=== PATIENT | male | born 1935 | race Caucasian/White ===

== ENCOUNTER 2019-06-11 09:53 | Outpatient (CLI) | payer OTHER, SELFPAY ==
--- NOTE | 2019-06-11 10:15 | USCV_ITS ---
Justyn Johnson Age: 83 Gender: M : 1935 Exam Date: 06/11/2019 09:58 Ordering Phys: Reilly Asif DO Technologist: [place] [facility] [place]: Diminished pedal pulses, non-healing leg wound RIGHT LEFT Brachial 176.00 mmHg Brachial 181.00 mmHg Pressure (mmHg) Waveform Pressure (mmHg) Waveform Above Knee 161.00 Below Knee 93.00 COMMUNITY DEVELOPMENT PLANNER 118.00 182.00 DPA 100.00 1.01 Ankle/Brachial Index 0.65 123.00 Pre-Exercise Toe Pressure 14.00 0.68 Pre-Exercise Toe/Brachial Index 0.08 FINDINGS See measurements listed above. Normal resting GARRICK of the right side with a minimally diminished resting TBI Moderately diminished resting GARRICK on the left side with a severely diminished resting TBI Near normal PVR waveforms on the right side Markedly diminished amplitude of the PVR waveforms at the below- knee level on the left side CONCLUSIONS Features suggestive of severe peripheral artery disease possibly involving the infrapopliteal vessels on the left side Features of mild peripheral artery disease on the right side Dr Reynaldo Green MD [facility] (Electronically Signed) Final Date: 11 June 2019 19:57 S
== END 2019-06-11 09:54 | disposition home or self-care (01) ==
LOC: US 09:57
PROVIDERS: Family Provider Emergency Medicine Emergency Medical Services; PCP Emergency Medicine Emergency Medical Services; Visit Provider Emergency Medicine Emergency Medical Services
DX: L97.821 Non-pressure chronic ulcer of other part of left lower leg limited to breakdown of skin (principal)
CPT/HCPCS: 93923

== ENCOUNTER 2019-06-16 10:32 | Emergency (ER) | payer OTHER, SELFPAY ==
[2019-06-16 10:36] VITALS: BP 216/112; PULSE 50; RESP 16; TEMP 36.7; O2SAT 98; BMI 22.5
[2019-06-16 10:47] VITALS: O2SAT 97
--- NOTE | 2019-06-16 10:55 | ED_ITS ---
Entered by Fanta Vital, acting as scribe for Edil Lindsey DO Jun 16, 2019 10:32 HPI - Extremity Problem General: Chief complaint: Extremity Injury, Lower Stated complaint: LEFT LEG BLOOD CLOT Time Seen by Provider: 06/16/19 10:53 Source: patient and RN notes reviewed Mode of arrival: ambulatory Limitations: no limitations History of Present Illness: HPI Narrative: 83 yo male presents to ED with complaints of numbness and redness to his LLE. The patient said he has been on antibiotics for a month. The patient has no pulse from his L mid-calf to his toes. The patient states the pain in his L leg was so severe last night that he was unable to walk. The patient states he L foot has been numb for quite a while MD Complaint: extremity pain (LLE) and cold extremity (LLE) Onset (ago): month(s) (1) Pain Consistency: constant Location: left and lower extremity Severity scale (1-10): 10 Quality: stabbing, aching and constant Radiation: other (mid-calf completely through to L toes) Relieving factors: nothing Exacerbating factors: range of motion, weight bearing, walking and exertion Associated symptoms: Reports no associated symptoms Review of Systems General: Reports: 10 or more systems reviewed and unremarkable except in HPI and below PFSH ED PFSH: Social History Smoking and tobacco status: never smoked Physical Exam Const: COMMON NORMALS: no apparent distress, average body habitus, oriented x3, no limitations, healthy appearing, alert and well nourished HENMT: COMMON NORMALS: normocephalic, head/scalp atraumatic, hearing grossly normal bilaterally, external ears normal, EAC's normal, TM's normal bilaterally, external nose normal, nasal mucous membranes and turbinates normal, moist oral mucous membranes, oropharynx normal, dentition normal and gingiva normal HEAD & SCALP: normocephalic and atraumatic NOSE: external nose normal and nasal mucous membranes and turbinates normal EXTERNAL EAR: Yes external ears normal EXTERNAL AUDITORY CANAL: EAC's normal TYMPANIC MEMBRANE: TM's normal bilaterally Eye: COMMON NORMALS: PERRL, EOMs intact bilaterally, conjunctivae normal, no scleral icterus, no papilledema, normal visual streeter by confrontation and fundi normal bilaterally CONJUNCTIVA: Yes conjunctivae normal PUPIL: Yes PERRL DIRECT OPHTHALMOSCOPY: Yes no papilledema and Yes fundi normal bilaterally Neck/C-Spine: COMMON NORMALS: full ROM, no lymphadenopathy, supple, no meningeal signs, no JVD, thyroid normal and no carotid bruits THYROID: thyroid normal Chest: COMMONS NORMALS: inspection of chest normal and palpation of chest normal Resp: COMMON NORMALS: normal respiratory effort, no retractions, no use of accessory muscles, clear to auscultation bilaterally and percussion normal AUSCULTATION: clear to auscultation bilaterally PERCUSSION: percussion normal Cardio: COMMON NORMALS: no JVD, regular rate, regular rhythm, S1 normal heart sound, S2 normal heart sound, no gallops, no clicks, no murmurs and no rub RATE: regular rate RHYTHM: regular rhythm HEART SOUNDS: S1 normal and S2 normal GI: COMMON NORMALS: normal to inspection, nondistended, normoactive bowel sounds, soft to palpation, non-tender, no hepatosplenomegaly, no masses and no bruits PALPATION: Yes soft and Yes no hepatosplenomegaly : COMMON NORMALS: Yes no CVA tenderness BLADDER/KIDNEY EXAM: Yes no CVA tenderness Back/Pelvis: COMMON NORMALS: no CVA tenderness, thoracic and lumbar spine normal to inspection, no thoracic nor lumbar tenderness, thoraco-lumbar ROM normal and straight leg raise negative bilaterally Extremity: COMMON NORMALS: full ROM, no joint enlargement, no clubbing, cyanosis or edema and no pedal edema GENERAL: Yes calf tenderness (LLE) LEFT LOWER EXTREMITY: Yes lower leg (painful, cold to touch), Yes ankle joint (painful, cold to touch) and Yes foot & digits (painful, cold to touch) Neuro: COMMON NORMALS: oriented x3 SENSORIUM/ORIENTATION: Yes alert MENINGEAL SIGNS: Yes no meningeal signs Skin: COMMON NORMALS: no rashes or lesions noted, no wounds, skin turgor normal, no jaundice, no petechiae and no mottling GENERAL SKIN EXAM: no rashes or lesions noted and turgor normal Course Vital Signs: Vital signs: Vital Signs Temperature 98.1 F 06/16/19 10:36 Pulse Rate 83 06/16/19 14:57 Respiratory Rate 17 06/16/19 14:57 Blood Pressure 144/97 06/16/19 14:57 Pulse Oximetry 96 06/16/19 14:57 MDM - Extremity (Nontraumatic) Lab Data: Labs: Lab Results 06/16/19 06/16/19 06/16/19 Range/Units 11:20 11:20 11:20 WBC 7.3 (4.0-10.0) 10^3/ uL RBC 4.99 (4.1-5.3) 10^6/u L Hgb 15.9 (11.7-16.6) g/dL Hct 45.6 (42.0-52.0) % MCV 91.4 (80-94) fL MCH 31.9 (28.0-34.0) pg MCHC 34.9 (30.0-36.0) g/dL RDW 12.4 (12.1-15.1) % Plt Count 182 (130-400) 10^3/c mm MPV 10.0 (7.4-10.4) fL Neut % (Auto) 45.3 % Lymph % (Auto) 38.2 % [place] % (Auto) 12.1 % Eos % (Auto) 3.0 % Baso % (Auto) 1.1 % Neut # (Auto) 3.3 (1.8-7.7) 10^3/u L Lymph # (Auto) 2.8 (0.8-4.8) 10^3/u L [place] # (Auto) 0.9 (0.2-0.9) 10^3/u L Eos # (Auto) 0.2 (0.0-0.8) 10^3/u L Baso # (Auto) 0.1 (0.0-0.1) 10^3/u L Nucleated RBC % (a uto) 0 % Nucleated RBCs # 0.0 /100WBC PT 13.90 H (10.5-13.3) SECO NDS INR 1.04 (0.8-1.2) APTT 33.7 (23.9-36.7) SECO NDS Sodium 139 (136-145) mmol/L Potassium 4.3 (3.5-5.1) mmol/L Chloride 103 (98-107) mmol/L Carbon Dioxide 23 (22-29) mmol/L Anion Gap 17.3 (5-19) BUN 12 (8-23) mg/dL Creatinine 0.8 (0.7-1.2) mg/dL Glucose 107 (65-115) mg/dL Lactate (0.5-2.2) mmol/L Calcium 9.6 (8.5-10.5) mg/dL Total Bilirubin 1.0 (0.15-1.2) mg/dL AST 19 (0-40) U/L ALT 14 (0-41) U/L Alkaline Phosphata se 74 (40-130) IU/L Total Protein 7.9 (6.6-8.7) g/dL Albumin 3.8 (3.5-5.2) g/dL Globulin 4.1 (1.3-4.6) g/dL 06/16/19 Range/Units 11:38 WBC (4.0-10.0) 10^3/ uL RBC (4.1-5.3) 10^6/u L Hgb (11.7-16.6) g/dL Hct (42.0-52.0) % MCV (80-94) fL MCH (28.0-34.0) pg MCHC (30.0-36.0) g/dL RDW (12.1-15.1) % Plt Count (130-400) 10^3/c mm MPV (7.4-10.4) fL Neut % (Auto) % Lymph % (Auto) % [place] % (Auto) % Eos % (Auto) % Baso % (Auto) % Neut # (Auto) (1.8-7.7) 10^3/u L Lymph # (Auto) (0.8-4.8) 10^3/u L [place] # (Auto) (0.2-0.9) 10^3/u L Eos # (Auto) (0.0-0.8) 10^3/u L Baso # (Auto) (0.0-0.1) 10^3/u L Nucleated RBC % (a uto) % Nucleated RBCs # /100WBC PT (10.5-13.3) SECO NDS INR (0.8-1.2) APTT (23.9-36.7) SECO NDS Sodium (136-145) mmol/L Potassium (3.5-5.1) mmol/L Chloride (98-107) mmol/L Carbon Dioxide (22-29) mmol/L Anion Gap (5-19) BUN (8-23) mg/dL Creatinine (0.7-1.2) mg/dL Glucose (65-115) mg/dL Lactate 1.5 (0.5-2.2) mmol/L Calcium (8.5-10.5) mg/dL Total Bilirubin (0.15-1.2) mg/dL AST (0-40) U/L ALT (0-41) U/L Alkaline Phosphata se (40-130) IU/L Total Protein (6.6-8.7) g/dL Albumin (3.5-5.2) g/dL Globulin (1.3-4.6) g/dL Discharge Plan Discharge Patient Disposition: Transfer to ED Clinical Impression: Arterial occlusion, lower extremity Condition: Stable Prescriptions: No Action No Known Home Medications RF: 0 Discharge Orders: Transfer Out of Facility (Order); Ordered 06/16/19 Ordered By: Edil Lindsey Referrals: Reilly Asif DO [Primary Care Provider] - Coding Level of Care Code ED Field Liability Generalist for Chg Fwd Exam Comprehensive The documentation recorded by the Zahraa antonio Valerie R, accurately reflects the service I personally performed and the decisions made by Rosalia nix Donald P, DO Jun 16, 2019 10:32
[2019-06-16 11:37] LABS: Basophils # 0.1 10^3/uL (0.0-0.1); Basophils % 1.1 %; Eosinophils # 0.2 10^3/uL (0.0-0.8); Hematocrit 45.6 % (42.0-52.0); Hemoglobin 15.9 g/dL (11.7-16.6); Lymphocytes # 2.8 10^3/uL (0.8-4.8); Lymphocytes % 38.2 %; Mean Corpuscular HGB Conc 34.9 g/dL (30.0-36.0); Mean Corpuscular Hemoglobin 31.9 pg (28.0-34.0); Mean Corpuscular Volume 91.4 fL (80-94); Monocytes # 0.9 10^3/uL (0.2-0.9); Monocytes % 12.1 %; Neutrophils # 3.3 10^3/uL (1.8-7.7); Neutrophils % 45.3 %; Nucleated Red Blood Cells % 0 %; Platelet Count 182 10^3/cmm (130-400); Red Blood Count 4.99 10^6/uL (4.1-5.3); Red Cell Distribution Width 12.4 % (12.1-15.1); White Blood Count 7.3 10^3/uL (4.0-10.0)
[2019-06-16 11:42] LABS: INR 1.04 (0.8-1.2)
[2019-06-16 11:44] LABS: Partial Thromboplastin Time 33.7 SECONDS (23.9-36.7)
[2019-06-16 11:49] LABS: Alanine Aminotransferase 14 U/L (0-41); Albumin Level 3.8 g/dL (3.5-5.2); Alkaline Phosphatase 74 IU/L (40-130); Anion Gap 17.3 (5-19); Aspartate Amino Transferase 19 U/L (0-40); Blood Urea Nitrogen 12 mg/dL (8-23); Calcium 9.6 mg/dL (8.5-10.5); Carbon Dioxide 23 mmol/L (22-29); Chloride 103 mmol/L (98-107); Globulin 4.1 g/dL (1.3-4.6); Glucose 107 mg/dL (65-115); Potassium 4.3 mmol/L (3.5-5.1); Sodium 139 mmol/L (136-145); Total Protein 7.9 g/dL (6.6-8.7)
[2019-06-16 11:58] LABS: Lactate (Lactic Acid level) 1.5 mmol/L (0.5-2.2)
[2019-06-16 14:57] VITALS: BP 144/97; PULSE 83; RESP 17; O2SAT 96
== END 2019-06-16 15:36 ==
PROVIDERS: Emergency Provider Family Medicine; Family Provider Emergency Medicine Emergency Medical Services; PCP Emergency Medicine Emergency Medical Services
DX: I70.202 Unspecified atherosclerosis of native arteries of extremities, left leg (principal)
CPT/HCPCS: 36415; 80053; 83605; 85025; 85610; 85730; 99282; 99285

== ENCOUNTER 2020-09-17 08:05 | Emergency (ER) | payer OTHER, SELFPAY ==
[2020-09-17 08:16] VITALS: BP 166/119; PULSE 60; RESP 18; TEMP 36.6; O2SAT 96
--- NOTE | 2020-09-17 08:17 | XRR_ITS ---
PROCEDURE INFORMATION: Exam: XR Right Wrist Exam date and time: 09/17/2020 8:19 AM Age: 84 years old Clinical indication: Pain; Wrist; Right; Additional info: Injury TECHNIQUE: Imaging protocol: XR Right wrist. Views: 3 or more views. COMPARISON: No relevant prior studies available. FINDINGS: Bones/joints: No acute bony injury or malalignment in the visualized right wrist. Degenerative change and chondrocalcinosis. Soft tissues: Mild soft tissue swelling. XR/XR wrist RT w scaphoid [id number] IMPRESSION: No acute bony injury or malalignment in the visualized right wrist.
--- NOTE | 2020-09-17 08:18 | W.ED.GENADLT ---
HPI - General Adult General: Chief complaint: Extremity Injury, Upper Stated complaint: pain in right wrist Time Seen by Provider: 09/17/20 08:14 Source: patient and family Mode of arrival: ambulatory Limitations: no limitations History of Present Illness: HPI narrative: This patient is a 84-year-old male who presents to the emergency department with right wrist pain. And swelling. Patient was working on a water faucet last night and strained his wrist. Patient states has been hurting and difficult to bend his wrist ever since. Patient presents to the emergency department today stating the pain is becoming unbearable. Patient concerning for possible dislocation versus fracture. Will do medical evaluation treat as needed Onset (ago): day(s) Location: right and upper extremity Severity scale (1-10): 6 Pain Consistency: constant Relieving factors: none Exacerbating factors: movement Associated symptoms: Deny chest pain, dyspnea, headache(s), nausea, rash, palpitations or vomiting Review of Systems General: Reports: 10 or more systems reviewed and unremarkable except in HPI and below Const: Denies: fever(s), chills, body aches or fatigue Eyes: Denies: change in vision or blurry vision ENMT: Denies: throat pain, hoarseness or mouth pain Card: Denies: chest pain or palpitations Resp: Denies: dyspnea GI: Denies: nausea or vomiting : Denies: flank pain, dysuria, urinary frequency, urinary urgency or urinary hesitancy Musc: Denies: neck pain, back pain, extremity pain, extremity swelling, joint pain, joint swelling, joint redness, joint warmth or limited range of motion Skin/Breast: Denies: rash Neuro: Denies: headache(s) Psych: Denies: anxiety or depression PFS ED PFSH: Social History Smoking and tobacco status: never smoked Physical Exam Const: COMMON NORMALS: no acute distress, average body habitus, patient oriented x3, no limitations, healthy appearing, alert and well nourished HENMT: COMMON NORMALS: normocephalic, atraumatic, external ears normal, EAC's normal, TM's normal bilaterally, Normal external nose present and Normal nasal mucous membranes and turbinates present HEAD & SCALP: normocephalic and atraumatic NOSE: Normal external nose present and Normal nasal mucous membranes and turbinates present EXTERNAL EAR: Yes external ears normal EXTERNAL AUDITORY CANAL: EAC's normal TYMPANIC MEMBRANE: TM's normal bilaterally Neck/C-Spine: COMMON NORMALS: full ROM, no lymphadenopathy, supple, no meningeal signs, no JVD, Thyroid normal and No carotid bruits THYROID: Thyroid normal Chest: COMMONS NORMALS: normal inspection of the chest, normal palpation of entire chest wall, normal inspection of the breasts and normal palpation of the breasts Breast/axilla inspection: Yes normal inspection of the breasts BREAST/AXILLA PALPATION: Yes normal palpation of the breasts Resp: COMMON NORMALS: normal respiratory effort, No retractions, No use of accessory muscles, clear to auscultation bilaterally and percussion normal AUSCULTATION: clear to auscultation bilaterally PERCUSSION: percussion normal Cardio: COMMON NORMALS: no JVD, regular rate, regular rhythm, S1 normal heart sound present, S2 normal heart sound present, No gallops present (Cardio), No clicks present (Cardio), No murmurs present (Cardio), No rub (Cardio) and Peripheral pulses 2+ throughout RATE: regular rate RHYTHM: regular rhythm HEART SOUNDS: S1 normal heart sound present and S2 normal heart sound present PERIPHERAL PULSES: Peripheral pulses 2+ throughout GI: COMMON NORMALS: Normal to inspection, nondistended, normoactive bowel sounds present, Soft to palpation, non-tender, No hepatosplenomegaly present, no masses and no bruits PALPATION: Yes Soft to palpation and Yes No hepatosplenomegaly present : COMMON NORMALS: Yes no CVA tenderness BLADDER/KIDNEY EXAM: Yes no CVA tenderness Back/Pelvis: COMMON NORMALS: no CVA tenderness, thoracic and lumbar spine normal to inspection, no thoracic nor lumbar tenderness, thoraco-lumbar ROM normal and straight leg raise negative bilaterally Extremity: COMMON NORMALS: capillary refill normal, no joint enlargement, no clubbing, cyanosis or edema, no calf tenderness and no pedal edema RIGHT UPPER EXTREMITY: Yes wrist (Decreased range of motion. And swelling on the ulnar side. Pain with move) Right wrist: Yes palpation (Pain on palpation), Yes ROM (Decreased range of motion) and Yes neurovascular exam (Appears to be intact but difficult to assess. ) EXTREMITY IMAGE (FRONT): 1. Wrist injury with pain and swelling Neuro: COMMON NORMALS: patient oriented x3 SENSORIUM/ORIENTATION: Yes alert MENINGEAL SIGNS: Yes no meningeal signs Course Reevaluation(s): Reevaluation #1: Patient placed in splint. Pain medicine medication given. No bony injury seen. Patient placed in splint and Ortho follow-up. Patient states understanding he will be discharged home Time: 09:34 Vital Signs: Vital signs: Vital Signs Temperature 97.8 F 09/17/20 08:16 Pulse Rate 60 09/17/20 08:16 Respiratory Rate 18 09/17/20 08:24 Blood Pressure 166/119 09/17/20 08:16 Pulse Oximetry 96 09/17/20 08:16 MDM - General Adult MDM Narrative: Medical decision making narrative: This patient is a 84-year-old male who presents to the emergency department with right wrist pain. And swelling. Patient was working on a water faucet last night and strained his wrist. Patient states has been hurting and difficult to bend his wrist ever since. Patient presents to the emergency department today stating the pain is becoming unbearable. Patient concerning for possible dislocation versus fracture however radiological evaluation is negative for any acute findings. Patient be discharged home with rest ice elevation and splint as instructed. Take medications as instructed. Follow-up with primary care physician or orthopedics as needed. Imaging Data^: Xray Ortho: Attestation: I personally reviewed and interpreted this imaging study as follows: My impression: No acute findings Radiologist's impression: FINDINGS: Bones/joints: No acute bony injury or malalignment in the visualized right wrist. Degenerative change and chondrocalcinosis. Soft tissues: Mild soft tissue swelling. XR/XR wrist RT w scaphoid [id number] IMPRESSION: No acute bony injury or malalignment in the visualized right wrist. Discharge Plan Discharge Patient Disposition: Home Clinical Impression: Right wrist sprain Condition: Stable Prescriptions: New diclofenac potassium 50 mg tablet 50 mg PO Q12H PRN (Reason: pain) Qty: 20 RF: 0 No Action ferrous sulfate 325 mg (65 mg iron) tablet 325 mg PO DAILY RF: 0 prednisolone acetate 1 % drops,suspension 1 drp ophthalmic (eye) BID RF: 0 Discharge Orders: Discharge ED (Routine); Ordered 09/17/20 Ordered By: Randy Toledo Referrals: Reilly Asif, DO [Primary Care Provider] - Discharge Diet: Usual diet Discharge Activity: Resume usual activity Patient Instructions: Opioid Safety Activity Restrictions/Additional Instructions: Patient be discharged home with rest ice elevation and splint as instructed. Take medications as instructed. Follow-up with primary care physician or orthopedics as needed. Coding Level of Care Code ED Product Development Technician for Sally Fwd Exam Comprehensive
[2020-09-17 08:24] VITALS: RESP 18
[2020-09-17] MEDS: HYDROcodone-acetaminophen 10-325 mg Tablet 1 TAB PO (09:28)
== END 2020-09-17 09:47 | disposition home or self-care (01) ==
PROVIDERS: Emergency Provider Emergency Medicine; PCP Emergency Medicine Emergency Medical Services
DX: S63.501A Unspecified sprain of right wrist, initial encounter (principal); X58.XXXA Exposure to other specified factors, initial encounter
CPT/HCPCS: 73110; 99283

== ENCOUNTER 2020-12-08 13:59 | Outpatient (CLI) | payer OTHER, SELFPAY ==
--- NOTE | 2020-12-08 15:45 | USCV_ITS ---
Justyn Johnson Age: 85 Gender: M : 1935 Exam Date: 12/08/2020 14:39 Ordering Phys: Nova Yates MD ([email or web address]) Technologist: KARLY Exam Location: [facility] [place] Indication: DYSPNEA BP: 136 / 95 HR: 52 Rhythm: Sinus Technical Quality: Suboptimal MEASUREMENTS (Male / Female) Normal Values 2D ECHO LV Diastolic Diameter PLAX 1.4 cm 4.2 - 5.9 / 3.9 - 5.3 cm LV Systolic Diameter PLAX 0.9 cm IVS Diastolic Thickness 1.6 cm 0.6 - 1.0 / 0.6 - 0.9 cm IVS Systolic Thickness 1.6 cm LVPW Diastolic Thickness 1.3 cm 0.6 - 1.0 / 0.6 - 0.9 cm LVPW Systolic Thickness 1.7 cm LVOT Diameter 1.9 cm LV Ejection Fraction 2D Teich 64.6 % LV Ejection Fraction MOD 2C 63.7 % LV Ejection Fraction 2C AL 63.2 % LA Diameter 4.3 cm LA Width 2.7 cm LA Height 2.9 cm RA Width 2.3 cm RA Height 2.5 cm Aorta at Sinotubular Diameter 2.4 cm DOPPLER AV Peak Velocity 124.0 cm/s LVOT Peak Velocity 124.0 cm/s AV Area Cont Eq vti 2.3 cm squared AV Area Cont Eq pk 2.8 cm squared MV Peak Velocity 498.0 cm/s MV Area PHT 2.0 cm squared Mitral E to A Ratio 0.7 MV E' Velocity 67.0 cm/s Mitral E to LV E' Septal Ratio 9.0 TR Peak Velocity 135.4 cm/s TR Peak Gradient 7.3 mmHg TR Mean Velocity 87.8 cm/s TR Mean Gradient 3.9 mmHg TR Velocity Time Integral 31.1 cm Right Atrial Pressure 3.0 mmHg Pulmonary Artery Systolic Pressu 10.3 mmHg PV Peak Velocity 72.0 cm/s RV Acceleration Time 0.2 s RV Ejection Time 0.4 s RV AcT/ET 0.4 FINDINGS Left Ventricle Normal left ventricular cavity size. Normal left ventricular systolic function. Left ventricular ejection fraction is estimated at 65-70 %. No regional wall motion abnormalities. Grade I diastolic dysfunction (abnormal relaxation filling pattern), normal to mildly elevated filling pressures. Right Ventricle Normal right ventricular size and systolic function. Right Atrium Right atrium not well visualized. Left Atrium Mildly increased left atrial size. Mitral Valve Moderately thickened mitral valve. No mitral valve stenosis. Mild mitral valve regurgitation. Aortic Valve Aortic valve not well visualized. No aortic valve stenosis. Mild to moderate aortic valve regurgitation. Tricuspid Valve Structurally normal tricuspid valve. Pulmonic Valve Pulmonic valve not well visualized. Pericardium No pericardial effusion. Aorta Normal-sized aortic root. Inferior vena cava not well visualized. CONCLUSIONS 1. This is a technically difficult study with poor short axis images. 2. Normal left ventricular cavity size and systolic function. Left ventricular ejection fraction is estimated at 65-70 %. No regional wall motion abnormalities. Grade I diastolic dysfunction (abnormal relaxation filling pattern), normal to mildly elevated filling pressures. 3. Normal right ventricular size and systolic function. 4. Mild to moderate aortic valve regurgitation. 5. Mild mitral valve regurgitation. 6. No prior similar studies to compare. Nova Yates MD (Electronically Signed) Final Date: 12 December 2020 12:21 S
== END 2020-12-08 14:00 | disposition home or self-care (01) ==
PROVIDERS: PCP Emergency Medicine Emergency Medical Services; Visit Provider Internal Medicine Cardiovascular Disease
DX: R06.00 Dyspnea, unspecified (principal); I08.0 Rheumatic disorders of both mitral and aortic valves
CPT/HCPCS: 93306

== ENCOUNTER → 2023-06-19 09:53 | Outpatient (BNVA) | payer OTHER, SELFPAY | PROVIDERS: PCP Emergency Medicine Emergency Medical Services; Visit Provider Nurse Practitioner Family | DX: C43.39 Malignant melanoma of other parts of face (principal); L57.0 Actinic keratosis; L57.8 Other skin changes due to chronic exposure to nonionizing radiation; L81.4 Other melanin hyperpigmentation | CPT/HCPCS: 11102; 17000; 99213 ==

== ENCOUNTER → 2023-07-18 08:49 | Outpatient (BNVA) | payer OTHER, SELFPAY | PROVIDERS: PCP Emergency Medicine Emergency Medical Services; Visit Provider Dermatology | DX: D03.39 Melanoma in situ of other parts of face (principal) | CPT/HCPCS: 11643 ==

== ENCOUNTER → 2023-07-24 11:06 | Outpatient (BNVA) | payer OTHER, SELFPAY | PROVIDERS: PCP Emergency Medicine Emergency Medical Services; Visit Provider Dermatology | DX: Z48.1 Encounter for planned postprocedural wound closure (principal); D03.39 Melanoma in situ of other parts of face | CPT/HCPCS: 99213 ==

== ENCOUNTER → 2023-12-23 09:27 | Outpatient (BNVA) | payer OTHER, SELFPAY | PROVIDERS: PCP Emergency Medicine Emergency Medical Services; Visit Provider Nurse Practitioner Family | DX: L57.8 Other skin changes due to chronic exposure to nonionizing radiation (principal); L81.4 Other melanin hyperpigmentation; L57.0 Actinic keratosis; D48.5 Neoplasm of uncertain behavior of skin; Z86.006 Personal history of melanoma in-situ | CPT/HCPCS: 11102; 17004; 99213 ==

== ENCOUNTER → 2024-01-06 08:56 | Outpatient (BNVA) | payer OTHER, SELFPAY | PROVIDERS: PCP Emergency Medicine Emergency Medical Services; Visit Provider Dermatology | DX: C44.91 Basal cell carcinoma of skin, unspecified (principal) | CPT/HCPCS: 99214 ==

== ENCOUNTER 2024-01-30 09:40 | Outpatient (CLI) | payer OTHER, SELFPAY ==
--- NOTE | 2024-01-30 09:43 | USCV_ITS ---
Justyn Johnson Age: 88 Gender: M : 1935 Exam Date: 01/30/2024 09:52 Ordering Phys: Sridevi Rasmussen Technologist: Jay Overton [place]am Location: [facility] [place] Indication: Leg pain. RIGHT LEFT Brachial 151.00 mmHg Brachial 149.00 mmHg Pressure (mmHg) Waveform Pressure (mmHg) Waveform 187.00 FILLING MACHINE TENDER 115.00 167.00 DPA 161.00 1.24 Ankle/Brachial Index 1.07 130.00 Pre-Exercise Toe Pressure 108.00 0.86 Pre-Exercise Toe/Brachial Index 0.72 FINDINGS Resting GARRICK is 1.24 on the right side and 1.07 on the left side Resting TBI of 0.86 on the right and 0.72 on the left CONCLUSIONS Normal resting ABIs and TBIs bilaterally No significant arterial obstruction, based on the above findings Dr Reynaldo Green MD [facility] (Electronically Signed) Final Date: 31 January 2024 13:51 S
== END 2024-01-30 09:41 | disposition home or self-care (01) ==
LOC: RAD 09:40
PROVIDERS: PCP Nurse Practitioner; Visit Provider Nurse Practitioner
DX: Z95.828 Presence of other vascular implants and grafts (principal)
CPT/HCPCS: 93922

== ENCOUNTER → 2024-02-20 13:57 | Outpatient (BNVA) | payer OTHER, SELFPAY | PROVIDERS: PCP Nurse Practitioner; Visit Provider Dermatology | DX: C44.91 Basal cell carcinoma of skin, unspecified (principal); L57.8 Other skin changes due to chronic exposure to nonionizing radiation; L81.4 Other melanin hyperpigmentation; L57.0 Actinic keratosis; Z86.006 Personal history of melanoma in-situ | CPT/HCPCS: 17000; 99214 ==

== ENCOUNTER → 2024-04-15 09:00 | Outpatient (BNVA) | payer OTHER, SELFPAY | PROVIDERS: PCP Nurse Practitioner; Visit Provider Nurse Practitioner Family | DX: L57.8 Other skin changes due to chronic exposure to nonionizing radiation (principal); L81.4 Other melanin hyperpigmentation; Z85.828 Personal history of other malignant neoplasm of skin; Z08 Encounter for follow-up examination after completed treatment for malignant neoplasm; Z86.006 Personal history of melanoma in-situ | CPT/HCPCS: 17000; 99213 ==

== ENCOUNTER 2024-04-20 11:36 | Emergency (ER) | payer OTHER, SELFPAY ==
[2024-04-20 11:38] VITALS: BP 138/91; PULSE 75; RESP 16; TEMP 36.9; O2SAT 95
--- NOTE | 2024-04-20 11:43 | XRR_ITS ---
PROCEDURE INFORMATION: Exam: XR Chest Exam date and time: 04/20/2024 12:02 PM Age: 88 years old Clinical indication: Other: Weakness TECHNIQUE: Imaging protocol: Radiologic exam of the chest. Views: 1 view. COMPARISON: No relevant prior studies available. FINDINGS: Lungs: There are infiltrates present in the left lung located in the left suprahilar region and in the lateral aspect of the left midlung zone and left lung base.There is a nodule in the right lung base measuring 9 mm. Recommend attempts to obtain old studies for comparison to determine stability. If no old films can be obtained, then further evaluation with chest CT is recommended Pleural spaces: Unremarkable. No pleural effusion. No pneumothorax. Heart/Mediastinum: The heart size is within normal limits. Bones/joints: Unremarkable. XR/XR chest 1V portable [id number] IMPRESSION: 1. Left lung infiltrates as described. 2. Right basilar pulmonary nodule. Recommend attempts to obtain old studies for comparison to determine stability. If no old studies can be obtained, then further evaluation with chest CT is recommended
--- NOTE | 2024-04-20 11:43 | CT_ITS ---
WS: [id number] CT HEAD NONCONTRAST HISTORY: fall, head injury TECHNIQUE: Contiguous axial imaging performed through the brain. Bone and soft tissue windows. Sagitt al and coronal reformats reviewed. All CT scans at [facility] use at least one of these dose optimization techniques: automated exposure control; mA and/or kV adjustment per patient size (includ es targeted exams where dose is matched to clinical indication); or iterative reconstruction. DLP: 1250.92 mGy.cm COMPARISON: None available. No acute intracranial hemorrhage, midline shift or mass effect. Severe symmetric atrophy and small vessel ischemic disease. Severe cerebellar atrophy. Ventricles: Mildly prominent ventricles on the basis of atrophy. No inferior displacement of the cerebellar tonsils. Paranasal sinuses: As visualized are clear. Mastoid air cells: Well pneumatized. Calvarium and scalp: Skull is intact with no soft tissue edema or swelling. CT/CT head wo con* [id number] IMPRESSION: 1. No acute intracranial hemorrhage or edema. 2. 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 3. No skull fracture.
--- NOTE | 2024-04-20 11:44 | ECG_ITS ---
[facility]: [facility] Pat Name: Justyn Johnson Department: Room: Gender: Male Route Clerk: : 1935 Requested By: Kristina Corley Order Number: [id number] Isabella MD: Shaheen Jaramillo M.D. Measurements Intervals [place] Rate: 71 P: 75 AR: 202 QRS: -42 QRSD: 92 T: 40 QT: 363 QTc: 396 Interpretive Statements SINUS RHYTHM WITH FREQUENT VENTRICULAR PREMATURE COMPLEXES LEFT AXIS DEVIATION [QRS AXIS < -30] NONSPECIFIC T-WAVE ABNORMALITY No previous ECG available for comparison Electronically Signed On 04-20-2024 20:03:10 SUPERVISOR PARTIAL DENTURE DEPARTMENT by Shaheen Jaramillo M.D. [email or web address]
--- NOTE | 2024-04-20 11:57 | PC.PHAR ---
[facility], [facility] fax at 12
--- NOTE | 2024-04-20 11:58 | W.ED.WEAKNES ---
HPI - Weakness General: Chief complaint: Weakness Stated complaint: weakness, fall Time Seen by Provider: 04/20/24 11:37 History of Present Illness: 88-year-old man who says he takes no medications and is normally healthy and walks 1 mile each day on the weekends who presents emergency room with weakness, fall and a cough. EMS reports that he was febrile but his temp is 98.4 here without treatment. He says he is just gotten generally weak. He says his arms and his legs bilaterally just are not working. He fell and hit his head on the toilet. No loss of consciousness. He has no altered mental status. No focal motor deficits. No chest pain. No abdominal pain. No nausea or vomiting. He says his only complaints really are cough and generalized weakness. He has been sick for about 2 to 3 days now. Review of Systems Narrative: Constitutional symptoms: Negative except as documented in HPI. Skin symptoms: Negative except as documented in HPI. Eye symptoms: Negative except as documented in HPI. ENMT symptoms: Negative except as documented in HPI. Respiratory symptoms: Negative except as documented in HPI. Cardiovascular symptoms: Negative except as documented in HPI. Gastrointestinal symptoms: Negative except as documented in HPI. Genitourinary symptoms: Negative except as documented in HPI. Musculoskeletal symptoms: Negative except as documented in HPI. Neurologic symptoms: Negative except as documented in HPI. Psychiatric symptoms: Negative except as documented in HPI. Endocrine symptoms: Negative except as documented in HPI. [facility] ED PFSH: Medical History Dysfunction of thyroid Enthesopathy of unspecified site Peripheral vascular disease Post-traumatic osteoarthritis Surgical History Hx of peripheral artery bypass Right femoro-popliteal bypass Family History Grandmother Diabetes Denies family history of CAD (coronary artery disease) Stroke Social History Smoking and tobacco/nicotine status: never used tobacco/nicotine Alcohol intake: never Substance/Drug Use: never Physical Exam Narrative: EXAM NARRATIVE: General: Alert, no acute distress. Skin: Warm, dry. Head: Normocephalic, some mild abrasions on the forehead.. Neck: Supple, trachea midline. Eye: Extraocular movements are intact. Ears, nose, mouth and throat: mucosa moist. Cardiovascular: Regular, Normal peripheral perfusion. Respiratory: Lungs are clear to auscultation, respirations are non-labored, breath sounds are equal, Symmetrical chest wall expansion. Gastrointestinal: Soft, Nontender, Non distended Musculoskeletal: Normal ROM, no deformity. Neurological: Alert and oriented, No focal neurological deficit observed. Psychiatric: Cooperative, appropriate mood & affect. Course Vital Signs: Vital signs: Vital Signs Temperature 98.4 F 04/20/24 11:38 Pulse Rate 92 04/20/24 12:46 Respiratory Rate 16 04/20/24 11:38 Blood Pressure 135/98 04/20/24 12:46 Pulse Oximetry 96 04/20/24 12:46 Oxygen Delivery Me thod Room Air 04/20/24 11:38 MDM - Weakness Medical Decision Making Medical decision making: Differential diagnosis for patient presenting with generalized weakness including but not limited to and based on the above HPI, review of systems and physical exam: Sepsis. Dehydration. Renal failure. Electrolyte abnormalities. Anemia. Congestive heart failure. Hypotension. Coronary syndrome. Hepatitis. Cirrhosis. Infections such as pneumonia, urinary tract infection, [place] illness, Cellulitis, Viral infections including influenza and Covid-19. Workup: labwork and lab/exam driven imaging ordered to evaluate, rule in and rule out above pathologies. EKG: Time 1147. Rate 71. Normal sinus rhythm, No ST-T changes, no ectopy, normal UT & QRS intervals, This was reviewed and interpreted by myself the ER physician at 11:[address] head: No acute intracranial process. no intracranial hemorrhage, no evidence of infarct. no evidence of acute fracture.This was reviewed and interpreted by myself the ER physician. Chest x-ray: Scattered left-sided infiltrate which is likely COVID pneumonitis, but placing on doxycycline as this could be a secondary pneumonia. This was reviewed and interpreted by myself the emergency room physician. I also reviewed the radiology report. There was also an incidental pulmonary nodule Lab Review: Laboratory results were reviewed and interpreted by myself the emergency room physician. No leukocytosis. No anemia. No renal failure. Patient is COVID-positive. I reviewed the patient's medical record. Reexamination: Patient remained stable. No increased work of breathing. No altered mental status. No focal motor deficits. Assessment and plan: COVID-19 Weakness Fall Head injury Pulmonary nodule - Discharged home - Discussed findings and plan with patient. Answered any questions. - All laboratory values were reviewed and interpreted personally by myself, the ER physician - All imaging was reviewed and interpreted personally by myself, the ER physician. - Evaluation and treatment of this problem were appropriate in the emergency setting Lab Data 04/20/24 11:58 04/20/24 11:58 Radiology Impressions Chest X-Ray 04/20/24 11:43 IMPRESSION: 1. Left lung infiltrates as described. 2. Right basilar pulmonary nodule. Recommend attempts to obtain old studies for comparison to determine stability. If no old studies can be obtained, then further evaluation with chest CT is recommended Head CT 04/20/24 11:43 IMPRESSION: 1. No acute intracranial hemorrhage or edema. 2. 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 3. No skull fracture. Laboratory Results WBC 8.03 10^3/uL (3.29-11.43) 04/20/24 11:58 RBC 4.65 10^6/uL (3.85-5.65) 04/20/24 11:58 Hgb 14.90 g/dL (11.27-16.99) 04/20/24 11:58 Hct 43.3 % (37-53) 04/20/24 11:58 MCV 93.1 fl (82-101) 04/20/24 11:58 MCH 32.0 pg (27-33) 04/20/24 11:58 MCHC 34.4 g/dL (30-55) 04/20/24 11:58 RDW 13.2 % (12.1-15.1) 04/20/24 11:58 Plt Count 147 10^3/cmm (157-399) L 04/20/24 11:58 MPV 10.5 fL (7.4-10.4) H 04/20/24 11:58 Neut % (Auto) 78.6 % 04/20/24 11:58 Lymph % (Auto) 8.7 % 04/20/24 11:58 [place] % (Auto) 11.6 % 04/20/24 11:58 Eos % (Auto) 0.2 % 04/20/24 11:58 Baso % (Auto) 0.5 % 04/20/24 11:58 Neut # (Auto) 6.31 10^3/uL (1.8-7.7) 04/20/24 11:58 Lymph # (Auto) 0.7 10^3/uL (0.8-4.8) L 04/20/24 11:58 [place] # (Auto) 0.9 10^3/uL (0.2-0.9) 04/20/24 11:58 Eos # (Auto) 0.0 10^3/uL (0.0-0.8) 04/20/24 11:58 Baso # (Auto) 0.0 10^3/uL (0.0-0.1) 04/20/24 11:58 Nucleated RBC % (auto) 0 % 04/20/24 11:58 Nucleated RBCs # 0.0 /100WBC 04/20/24 11:58 Sodium 132 mmol/L (136-145) L 04/20/24 11:58 Potassium 4.1 mmol/L (3.5-5.1) 04/20/24 11:58 Chloride 98 mmol/L (98-107) 04/20/24 11:58 Carbon Dioxide 22 mmol/L (22-29) 04/20/24 11:58 Anion Gap 16.1 (5-19) 04/20/24 11:58 BUN 13 mg/dL (8-23) 04/20/24 11:58 Creatinine 0.9 mg/dL (0.7-1.2) 04/20/24 11:58 GFR Calculation Not Reportable 04/20/24 11:58 Glucose 114 mg/dL (65-115) 04/20/24 11:58 Calculated Osmolality 275 mOsm/kg (285-295) L 04/20/24 11:58 Lactic Acid 1.6 mmol/L (0.5-2.2) 04/20/24 11:58 Calcium 8.8 mg/dL (8.5-10.5) 04/20/24 11:58 Total Bilirubin 0.8 mg/dL (0.15-1.2) 04/20/24 11:58 AST 13 U/L (0-40) 04/20/24 11:58 ALT 7 U/L (0-41) 04/20/24 11:58 Alkaline Phosphatase 78 U/L (40-130) 04/20/24 11:58 Troponin T Baseline 14 ng/L (0-15) 04/20/24 11:58 C-Reactive Protein 16.9 mg/L (0.0-4.9) H 04/20/24 11:58 NT-Pro-B Natriuret Pep 374 pg/mL (0-450) 04/20/24 11:58 Total Protein 7.5 g/dL (6.6-8.7) 04/20/24 11:58 Albumin 3.6 g/dL (3.5-5.2) 04/20/24 11:58 Globulin 3.9 g/dL (1.3-4.6) 04/20/24 11:58 Urine Color Yellow (Yellow) 04/20/24 12:25 Urine Appearance Clear (CLEAR) 04/20/24 12:25 Urine pH 7.0 (5-7) 04/20/24 12:25 Ur Specific [place] 1.021 (1.005-1.030) 04/20/24 12:25 Urine Protein Negative (Negative) 04/20/24 12:25 Urine Glucose (UA) Negative (Normal) 04/20/24 12:25 Urine Ketones Trace (Negative) 04/20/24 12:25 Urine Blood Negative (Negative) 04/20/24 12:25 Urine Nitrate Negative (Negative) 04/20/24 12:25 Urine Bilirubin Negative (Negative) 04/20/24 12:25 Urine Urobilinogen 1.0 mg/dL (Negative) 04/20/24 12:25 Ur Leukocyte Esterase Negative (Negative) 04/20/24 12:25 Urine RBC 0-2 /hpf (0-2) 04/20/24 12:25 Urine WBC 0-5 /hpf (0-5) 04/20/24 12:25 Ur Squamous Epith Cells 0-5 /hpf (0-5) 04/20/24 12:25 Amorphous Sediment Not Reportable 04/20/24 12:25 Urine Bacteria None seen /hpf (NONE) 04/20/24 12:25 Hyaline Casts 0-4 /lpf H 04/20/24 12:25 Coronavirus (PCR) Positive (Negative) A 04/20/24 11:45 Influenza A (PCR) Negative (Negative) 04/20/24 11:45 Influenza Type B (PCR) Negative (Negative) 04/20/24 11:45 RSV (PCR) Negative (Negative) 04/20/24 11:45 All radiology interpretation(s) finalized by discharge Discharge Plan Discharge Patient Disposition: Home Clinical Impression: COVID-19, Weakness, Head injury, Incidental pulmonary nodule Condition: Stable Prescriptions: New doxycycline hyclate 100 mg capsule 100 mg PO BID 7 Days Qty: 14 0RF dexamethasone 6 mg tablet 6 mg PO DAILY 5 Days Qty: 5 0RF Paxlovid 300 mg (150 mg x 2)-100 mg tablets,dose pack See Rx Instructions .ROUTE .COMPLEX Qty: 30 0RF Rx Instructions: take TWO 150 mg tablets of nirmatrelvir with ONE 100 mg tablet of ritonavir twice daily for 5 days No Action aspirin 81 mg tablet,chewable 81 mg PO DAILY tamsulosin 0.4 mg Capsule 0.4 mg PO DAILY Discharge Orders: Discharge ED (Routine); Ordered 04/20/24 Ordered By: Kristina Man Referrals: Sridevi Rasmussen FNP [Primary Care Provider] - Discharge Diet: Usual diet Discharge Activity: Increase activity as tolerated Patient Instructions: Pulmonary Nodules (ED), COVID-19 (Coronavirus Disease 2019) (ED), How to Recover from COVID-19 at Home (ED), Opioid Safety, Pain Management Activity Restrictions/Additional Instructions: A pulmonary nodule was seen on imaging. This will need follow up imaging with your primary provider. Please schedule an appointment concerning this. Thank you for choosing [facility] for your healthcare needs today. Please realize this is an emergency room and that we are providing you with a medical screening exam and this may not be complete and all inclusive of all the testing and or work up that you may need to determine your ailment or severity of your illness. You have been screened and evaluated and felt safe for discharge. Health conditions do change or evolve sometimes and as such it is important that you follow up with your Primary Doctor to be re checked, 3-5 days is a general good time frame for follow up. You are always welcome to return to the ED for re assessment if your symptoms are worsening or you have new concerns Coding Level of Care Code ED Inside Sales Administrator for Sally Fwd Related Data Home Medications Medication Instructions Recorded Confirmed aspirin 81 mg chewable tablet 81 mg PO DAILY 02/28/21 04/20/24 tamsulosin 0.4 mg capsule 0.4 mg PO DAILY 04/20/24 04/20/24 Previous Rx's Medication Instructions Recorded dexamethasone 6 mg tablet 6 mg PO DAILY 5 days #5 tabs 04/20/24 doxycycline hyclate 100 mg capsule 100 mg PO BID 7 days #14 caps 04/20/24 nirmatrelvir 300 mg (150 mg See Rx Instructions PO .COMPLEX 04/20/24 x2)-ritonavir 100 mg tablet,dose #30 ea pack (Paxlovid) Allergies Allergy/AdvReac Type Severity Reaction Status Date / Time No Known Allergies Allergy Verified 01/18/22 11:34
[2024-04-20 12:13] LABS: Basophils % 0.5 %; Eosinophils % 0.2 %; Hematocrit 43.3 % (37-53); Lymphocytes # 0.7 10^3/uL (0.8-4.8); Lymphocytes % 8.7 %; Mean Corpuscular HGB Conc 34.4 g/dL (30-55); Mean Corpuscular Volume 93.1 fl (82-101); Mean Platelet Volume 10.5 fL (7.4-10.4); Monocytes # 0.9 10^3/uL (0.2-0.9); Monocytes % 11.6 %; Neutrophils # 6.31 10^3/uL (1.8-7.7); Neutrophils % 78.6 %; Nucleated Red Blood Cells % 0 %; Platelet Count 147 10^3/cmm (157-399); Red Blood Count 4.65 10^6/uL (3.85-5.65); Red Cell Distribution Width 13.2 % (12.1-15.1); White Blood Count 8.03 10^3/uL (3.29-11.43)
[2024-04-20 12:29] LABS: Lactic Sepsis W/Reflex 1.6 mmol/L (0.5-2.2)
[2024-04-20 12:34] LABS: Troponin(5th) Baseline 14 ng/L (0-15)
[2024-04-20 12:39] LABS: Influenza A NEGATIVE (Negative); Influenza B NEGATIVE (Negative); Respiratory Syncytial Virus Ce NEGATIVE (Negative)
[2024-04-20 12:42] LABS: Alanine Aminotransferase 7 U/L (0-41); Albumin Level 3.6 g/dL (3.5-5.2); Alkaline Phosphatase 78 U/L (40-130); Anion Gap 16.1 (5-19); Aspartate Amino Transferase 13 U/L (0-40); Blood Urea Nitrogen 13 mg/dL (8-23); C Reactive Protein 16.9 mg/L (0.0-4.9); Calcium 8.8 mg/dL (8.5-10.5); Carbon Dioxide 22 mmol/L (22-29); Chloride 98 mmol/L (98-107); Creatinine Clr Calc Pharmacy 65.4369; Globulin 3.9 g/dL (1.3-4.6); Glucose 114 mg/dL (65-115); NT Pro B Type Natriuretic Pept 374 pg/mL (0-450); Osmolality Calculated 275 mOsm/kg (285-295); Potassium 4.1 mmol/L (3.5-5.1); Sodium 132 mmol/L (136-145); Total Bilirubin 0.8 mg/dL (0.15-1.2); Total Protein 7.5 g/dL (6.6-8.7)
[2024-04-20 12:43] LABS: Bilirubin Urine Negative (Negative); Blood Urine Negative (Negative); Glucose Urine UA Negative (Normal); Ketones Urine Trace (Negative); Leukocyte Esterase Urine Negative (Negative); Nitrate Urine Negative (Negative); Protein Urine Negative (Negative); Specific Gravity, Urine 1.021 (1.005-1.030); Urine Appearance Clear (CLEAR); Urine Color Yellow (Yellow)
[2024-04-20 12:46] VITALS: BP 135/98; PULSE 92; O2SAT 96
[2024-04-20 12:48] LABS: Bacteria Urine None Seen /hpf; Hyaline Casts Urine 0-4 /lpf; RBC Urine 0-2 /hpf (0-2); Squamous Epithelial Cell Urine 0-5 /hpf (0-5); WBC Urine 0-5 /hpf (0-5)
[2024-04-20 12:57] LABS: Covid PCR Positive (Negative)
[2024-04-20] MEDS: dexamethasone 10 mg/mL INJ IVP (13:06)
[2024-04-20 13:51] VITALS: BP 135/90; PULSE 65; O2SAT 96
== END 2024-04-20 13:52 | disposition home or self-care (01) ==
PROVIDERS: Emergency Provider Emergency Medicine; PCP Nurse Practitioner
DX: U07.1 COVID-19 (principal); S09.8XXA Other specified injuries of head, initial encounter; W19.XXXA Unspecified fall, initial encounter; Z11.52 Encounter for screening for COVID-19; Z79.82 Long term (current) use of aspirin
CPT/HCPCS: 0241U; 36415; 70450; 71045; 80053; 81001; 83605; 83880; 84484; 85025; 86140; 87040; 93005; 96374; 96375; 99285; J1100

== ENCOUNTER → 2024-10-07 13:22 | Outpatient (BNVA) | payer OTHER, SELFPAY | PROVIDERS: PCP Nurse Practitioner; Visit Provider Dermatology | DX: L72.0 Epidermal cyst (principal); L81.4 Other melanin hyperpigmentation; Z85.828 Personal history of other malignant neoplasm of skin; Z08 Encounter for follow-up examination after completed treatment for malignant neoplasm; Z86.006 Personal history of melanoma in-situ | CPT/HCPCS: 99213 ==

== ENCOUNTER 2024-10-08 10:24 | Inpatient (IN) | payer OTHER, MEDICARE, SELFPAY ==
[2024-10-08 10:35] VITALS: BP 161/84; PULSE 56; RESP 18; TEMP 36.4; O2SAT 97; BMI 21.8
--- NOTE | 2024-10-08 10:38 | USR_ITS ---
PROCEDURE INFORMATION: Exam: US Duplex Bilateral Lower Extremity Arteries Exam date and time: 10/08/2024 11:21 AM Age: 88 years old Clinical indication: Other: No pulse; Additional info: Pulseless leg TECHNIQUE: Imaging protocol: Real-time ultrasound scan of the arteries of the bilateral lower extremities with 2-D [place] scale, color Doppler flow and spectral waveform analysis. Images documented and saved. COMPARISON: No relevant prior studies available. FINDINGS: Right common femoral artery: No occlusion or significant stenosis. Normal waveform. Right superficial femoral artery: Triphasic waveform proximally, monophasic in the mid segment. Femoropopliteal bypass noted with triphasic waveforms and normal velocities. Right popliteal artery: No occlusion or significant stenosis. Normal waveform. Right calf/foot arteries: No occlusion or significant stenosis in the visualized arteries. Normal waveforms. Dorsalis pedis artery is patent. Left common femoral artery: No occlusion or significant stenosis. Normal waveform. Left superficial femoral artery: Monophasic waveform distally. Left popliteal artery: Monophasic waveform in the [place] vessel. Markedly diminished flow with very little upstroke within the popliteal artery stent. Left calf/foot arteries: Markedly diminished flow in the posterior tibial and dorsalis pedis arteries with blunted monophasic waveforms. 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 [id number] stenosis in the mid right SFA. Patent right femoropopliteal bypass.
--- NOTE | 2024-10-08 10:51 | ED_ITS ---
HPI - Extremity Problem 2 General: Chief complaint: Extremity Problem,Nontraumatic Stated complaint: no pulse in left leg [facility] Time Seen by Provider: 10/08/24 10:41 History of Present Illness: 88-year-old male with history of periphe ral vascular disease who presents to the emergency room with leg pain/claudication and decreased pulses on the left leg. [facility] not [facility] like sent him here. He said when he woke up this morning his foot was cool and more painful. He is had a stent in the left leg and a bypass on the right. Not currently on any blood thinners. Related Data Home Medications ?Medication ?Instructions ?Recorded ?Confirmed aspirin 81 mg chewable tablet 81 mg PO DAILY 02/28/21 10/08/24 tamsulosin 0.4 mg capsule 0.4 mg PO DAILY PRN urine fl ow 04/20/24 10/08/24 ibuprofen 200 mg tablet 200 mg PO Q6H PRN Pain 10/0810/08/24 vit C 250 mg-vit E 90 mg-zinc 40 1 tab PO BID 10/08/24 10/08/24 mg-copper 1 [id number] capsule (PreserVision AREDS-2) Allergies Allergy/AdvReac Type Severity Reaction Status Date / Time No Known Allergies Allergy Verified 01/18/22 11:34 Review of Systems 2 Narrative: Constitutional symptoms: Negative except as documented in HPI. Skin symptoms: Negative except as documented in HPI. Eye symptoms: Negative except as documented in HPI. ENMT symptoms: Negative except as documented in HPI. Respiratory symptoms: Negative except as documented in HPI. Cardiovascular symptoms: Negative except as documented in HPI. Gastrointestinal symptoms: Negative except as documented in HPI. Genitourinary symptoms: Negative except as documented in HPI. Musculoskeletal symptoms: Negative except as documented in HPI. Neurologic symptoms: Negative except as documented in HPI. Psychiatric symptoms: Negative except as documented in HPI. Endocrine symptoms: Negative except as documented in HPI. PFSH ED 2 PFSH: Medical History Dysfunction of thyroid Enthesopathy of unspecified site Peripheral vascular disease Post-traumatic osteoarthritis Surgical History Hx of peripheral artery bypass Right femoro-popliteal bypass Family History Grandmother Diabetes Denies family history of CAD (coronary artery disease) Stroke Social History Smoking and tobacco/nicotine status: never used tobacco/nicotine Alcohol intake: never Substance/Drug Use: never Physical Exam 2 Narrative: EXAM NARRATIVE: General: Alert, no acute distress. Skin: Warm, dry. Head: Normocephalic, atraumatic. Neck: Supple, trachea midline. Eye: Extraocular movements are intact. Ears, nose, mouth and throat: mucosa moist. Cardiovascular: Regular, Normal peripheral perfusion. Foot is cool. Pulses are nonpalpable. Respiratory: Lungs are clear to auscultation, respirations are non-labored, breath sounds are equal, Symmetrical chest wall expansion. Gastrointestinal: Soft, Nontender, Non distended Musculoskeletal: Normal ROM, no deformity. Neurological: Alert and oriented, No focal neurological deficit observed. Psychiatric: Cooperative, appropriate mood & affect. Course 2 Vital Signs: Vital signs: Vital Signs Temperature 97.6 F 10/08/24 10:35 Pulse Rate 48 L 10/08/24 15:28 Respiratory Rate 18 10/08/24 10:35 Blood Pressure 180/82 10/08/24 15:28 Pulse Oximetry 95 10/08/24 15:28 Oxygen Delivery Me thod Room Air 10/08/24 14:44 MDM - Extremity (Nontraumatic) Medical Decision Making Medical decision making: Differential diagnosis including but not limited to and based on the above HPI, review of systems and physical exam: Concern for peripheral vascular arterial occlusion. Orders placed to evaluate differential diagnosis based on the above differential, HPI and physical exam Ultrasound of the left lower extremity: High-grade stenosis in the left popliteal artery stent with markedly diminished flow distally. Mild to moderate stenosis in the mid right SFA. Patent right femoropopliteal bypass. dispensary technician concerned that there was a deep vein thrombosis so a venous ultrasound was ordered as well. This was reviewed and interpreted by myself the emergency room physician. I also reviewed the radiology report. Lab Review: Laboratory results were reviewed and interpreted by myself the emergency room physician. No leukocytosis. No anemia. No renal failure. Liver enzymes are normal. Lactic acid is negative. I reviewed the patient's medical record. Reexamination: Patient remained stable. No increased work of breathing. No altered mental status. No focal motor deficits. Consultation: I spoke with Dr. Jaramillo who is on-call for cardiology who recommends initiation of heparin drip, admission and he will consult and likely do catheterization. Consultation: I spoke with Dr. Lomax who is on-call for the hospitalist who agrees to admission. Assessment and plan: Peripheral vascular disease Acute arterial occlusion ?Heparin drip initiated. -I discussed the patient with the hospitalist on-call who is admitting the patient. - Discussed findings and plan with patient. Answered any questions. - All laboratory values were reviewed and interpreted personally by myself, the ER physician - All imaging was reviewed and interpreted personally by myself, the ER physician. 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 [id number] stenosis in the mid right SFA. Patent right femoropopliteal bypass. Aorta w/Runoff CTA 10/08/24 12:27 IMPRESSION: 1. 2.5 cm infrarenal abdominal aortic aneurysm. 2. Patent right distal SFA to infrapopliteal bypass. 3. 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 Small amount of contrast enters the proximal aspect of the aneurysm near the bypass. 4. 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 Left popliteal artery stent begins in the distal aspect of the aneurysm and appears occluded or nearly completely occluded. 5. Severe diffuse infrapopliteal calcified atherosclerotic disease which limits evaluation. Probable single-vessel limited runoff to the left foot via the posterior tibial artery. Poor runoff visualization to the right foot. 6. Moderate nonspecific prostate enlargement. Laboratory Results WBC 6.94 10^3/uL (3.29-11.43) 10/08/24 10:50 RBC 4.62 10^6/uL (3.85-5.65) 10/08/24 10:50 Hgb 15.00 g/dL (11.27-16.99) 10/08/24 10:50 Hct 44.0 % (37-53) 10/08/24 10:50 MCV 95.2 fl (82-101) 10/08/24 10:50 MCH 32.5 pg (27-33) 10/08/24 10:50 MCHC 34.1 g/dL (30-55) 10/08/24 10:50 RDW 12.8 % (12.1-15.1) 10/08/24 10:50 Plt Count 162 10^3/cmm (157-399) 10/08/24 10:50 MPV 9.8 fL (7.4-10.4) 10/08/24 10:50 Neut % (Auto) 50.7 % 10/08/24 10:50 Lymph % (Auto) 31.8 % 10/08/24 10:50 [place] % (Auto) 13.0 % 10/08/24 10:50 Eos % (Auto) 3.0 % 10/08/24 10:50 Baso % (Auto) 1.2 % 10/08/24 10:50 Neut # (Auto) 3.52 10^3/uL (1.8-7.7) 10/08/24 10:50 Lymph # (Auto) 2.2 10^3/uL (0.8-4.8) 10/08/24 10:50 [place] # (Auto) 0.9 10^3/uL (0.2-0.9) 10/08/24 10:50 Eos # (Auto) 0.2 10^3/uL (0.0-0.8) 10/08/24 10:50 Baso # (Auto) 0.1 10^3/uL (0.0-0.1) 10/08/24 10:50 Nucleated RBC % (auto) 0 % 10/08/24 10:50 Nucleated RBCs # 0.0 /100WBC 10/08/24 10:50 PT 13.30 SECONDS (12.1-14.9) 10/08/24 10:50 INR 0.94 (0.8-1.2) 10/08/24 10:50 APTT 33.6 SECONDS (23.9-36.7) 10/08/24 10:50 Sodium 138 mmol/L (136-145) 10/08/24 10:50 Potassium 4.5 mmol/L (3.5-5.1) 10/08/24 10:50 Chloride 105 mmol/L (98-107) 10/08/24 10:50 Carbon Dioxide 22 mmol/L (22-29) 10/08/24 10:50 Anion Gap 15.5 (5-19) 10/08/24 10:50 BUN 15 mg/dL (8-23) 10/08/24 10:50 Creatinine 0.9 mg/dL (0.7-1.2) 10/08/24 10:50 GFR Calculation Not Reportable 10/08/24 10:50 Glucose 94 mg/dL (65-115) 10/08/24 10:50 Calculated Osmolality 287 mOsm/kg (285-295) 10/08/24 10:50 Lactic Acid 1.0 mmol/L (0.5-2.2) 10/08/24 10:50 Calcium 9.1 mg/dL (8.5-10.5) 10/08/24 10:50 Total Bilirubin 0.7 mg/dL (0.15-1.2) 10/08/24 10:50 AST 15 U/L (0-40) 10/08/24 10:50 ALT 8 U/L (0-41) 10/08/24 10:50 Alkaline Phosphatase 79 U/L (40-130) 10/08/24 10:50 Total Protein 7.7 g/dL (6.6-8.7) 10/08/24 10:50 Albumin 3.8 g/dL (3.5-5.2) 10/08/24 10:50 Globulin 3.9 g/dL (1.3-4.6) 10/08/24 10:50 All radiology interpretation(s) finalized by discharge Discharge Plan Discharge Patient Disposition: Admitted As Inpatient Admit Provider: Lily Lomax Clinical Impression: Occlusion of left popliteal artery, Occlusion of stent of peripheral artery, Claudication Condition: Stable Coding Level of Care Code ED Spray Operator for Chg Sylvester
[2024-10-08 11:23] LABS: Basophils # 0.1 10^3/uL (0.0-0.1); Basophils % 1.2 %; Eosinophils # 0.2 10^3/uL (0.0-0.8); Lymphocytes # 2.2 10^3/uL (0.8-4.8); Lymphocytes % 31.8 %; Mean Corpuscular HGB Conc 34.1 g/dL (30-55); Mean Corpuscular Hemoglobin 32.5 pg (27-33); Mean Corpuscular Volume 95.2 fl (82-101); Mean Platelet Volume 9.8 fL (7.4-10.4); Monocytes # 0.9 10^3/uL (0.2-0.9); Neutrophils # 3.52 10^3/uL (1.8-7.7); Neutrophils % 50.7 %; Nucleated Red Blood Cells % 0 %; Platelet Count 162 10^3/cmm (157-399); Red Blood Count 4.62 10^6/uL (3.85-5.65); Red Cell Distribution Width 12.8 % (12.1-15.1); White Blood Count 6.94 10^3/uL (3.29-11.43)
[2024-10-08 11:26] LABS: Alanine Aminotransferase 8 U/L (0-41); Albumin Level 3.8 g/dL (3.5-5.2); Alkaline Phosphatase 79 U/L (40-130); Anion Gap 15.5 (5-19); Aspartate Amino Transferase 15 U/L (0-40); Blood Urea Nitrogen 15 mg/dL (8-23); Calcium 9.1 mg/dL (8.5-10.5); Carbon Dioxide 22 mmol/L (22-29); Chloride 105 mmol/L (98-107); Creatinine Clr Calc Pharmacy 64.3295; Globulin 3.9 g/dL (1.3-4.6); Glucose 94 mg/dL (65-115); Osmolality Calculated 287 mOsm/kg (285-295); Potassium 4.5 mmol/L (3.5-5.1); Sodium 138 mmol/L (136-145); Total Bilirubin 0.7 mg/dL (0.15-1.2); Total Protein 7.7 g/dL (6.6-8.7)
--- NOTE | 2024-10-08 12:27 | CTR_ITS ---
PROCEDURE INFORMATION: Exam: CTA Abdominal Aorta and Bilateral Lower Extremities (Run-off) With Contrast Exam date and time: 10/08/2024 12:59 PM Age: 88 years old Clinical indication: Other: No pulse in left lower leg; Prior surgery; Surgery date: 6+ months; Surgery type: RT femoro-popliteal bypass; Additional info: Diminished pulsed. Abnormal US. TECHNIQUE: Imaging protocol: Computed tomographic angiography of the of the abdominal aorta, pelvis and bilateral lower extremities with contrast. 3D rendering (Not supervised by radiologist): MIP and/or 3D reconstructed images were created by the technologist. Radiation optimization: All CT scans at this facility use at least one of these dose optimization techniques: automated exposure control; mA and/or kV adjustment per patient size (includes targeted exams where dose is matched to clinical indication); or iterative reconstruction. Contrast material: OMNI 350; Contrast volume: 100 ml; Contrast route: INTRAVENOUS (IV); COMPARISON: [place] [id number] 10/08/2024 11:21 AM RADIATION DOSE METRICS: Total DLP (mGy-cm): 986.63 FINDINGS: Aorta: Aortic atherosclerotic disease. 2.5 cm infrarenal abdominal aortic aneurysm. Celiac trunk and mesenteric arteries: No occlusion or significant stenosis. Renal arteries: No occlusion or significant stenosis. Right iliac arteries: No occlusion or significant stenosis. Right femoral/popliteal arteries: Patent right distal SFA to infrapopliteal bypass. 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 Small amount of contrast enters the proximal aspect of the aneurysm near the bypass. Right infrapopliteal arteries: Severe diffuse calcified atherosclerotic disease. Limited evaluation due to contrast bolus timing. Left iliac arteries: No occlusion or significant stenosis. 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 Left popliteal artery stent which appears occluded or nearly completely occluded. Left infrapopliteal arteries: Severe diffuse calcified atherosclerotic disease. Limited single-vessel runoff to the foot via the posterior tibial artery. Liver: No mass. Gallbladder and biliary ducts: Unremarkable. No calcified stones. No ductal dilation. Pancreas: Unremarkable. No mass. No ductal dilation. Spleen: Normal. No splenomegaly. Adrenal glands: Normal. No mass. Kidneys and ureters: Normal. No mass. Stomach and bowel: Colonic diverticulosis is present without diverticulitis. Bowel has normal caliber. Appendix: No evidence of appendicitis. Urinary bladder: Unremarkable. No mass. Reproductive: Moderate nonspecific prostate enlargement. Intraperitoneal space: Unremarkable. No free air. No significant fluid collection. Lymph nodes: No lymphadenopathy. Bones/joints: No acute fracture. No dislocation. Soft tissues: Extensive nonspecific soft tissue swelling in the right lower extremity [id number]. CT/CT angio abd aorta runof [id number] IMPRESSION: 1. 2.5 cm infrarenal abdominal aortic aneurysm. 2. Patent right distal SFA to infrapopliteal bypass. 3. 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 Small amount of contrast enters the proximal aspect of the aneurysm near the bypass. 4. 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 Left popliteal artery stent begins in the distal aspect of the aneurysm and appears occluded or nearly completely occluded. 5. Severe diffuse infrapopliteal calcified atherosclerotic disease which limits evaluation. Probable single-vessel limited runoff to the left foot via the posterior tibial artery. Poor runoff visualization to the right foot. 6. Moderate nonspecific prostate enlargement.
--- NOTE | 2024-10-08 12:27 | USCV_ITS ---
Justyn Johnson Age: 88 Gender: M : 1935 Exam Date: 10/08/2024 13:28 Ordering Phys: Kristina Man MD Technologist: FABI Exam Location: [facility] – [place] Indication: Thrombus seen on Arterial exam HISTORY: Thrombus seen on arterial exam PROCEDURES: Venous duplex imaging was performed in bilateral lower extremities. The following venous structures were evaluated: common femoral vein, profunda vein, proximal portion of the greater saphenous vein, superficial femoral vein, and the popliteal vein. Serial compression, augmentation maneuvers, and spectral Doppler flow evaluation were performed. FINDINGS: No evidence of DVT seen in any vessel visualized at this time. CONCLUSIONS No evidence of right lower extremity DVT. No evidence of left lower extremity DVT. David Kohler MD (Electronically Signed) Final Date: 08 October 2024 15:25 S
[2024-10-08] MEDS: iohexol 350 mg/mL 500 mL Btl (per mL) IV (13:33)
--- NOTE | 2024-10-08 14:31 | P.CONIM_ITS ---
<Statement entered by Shaheen Jaramillo M.D - 10/09/24 14:43> Patient was evaluated and cared for in conjunction with an advanced practice practitioner.? I personally examined the patient and reviewed the chart and all pertinent data including imaging, telemetry, and laboratory results.? I discussed the patient in detail with the advanced practice practitioner.? Please see? their note for complete H&P, testing results and agreed upon plan of care for the patient. Patient has critical limb ischemia of left lower extremity. CTA showing bilateral popliteal aneurysms that are large. On left side has thrombosed popliteal aneurysm and distal to that is subtotally to totally occluded stent. Will recommend transferring to facility with vascular surgery availability as has heavy thrombus burden on CTA with single vessel run off. Continue heparin gtt Had a detailed discussion with patient and family. Shared decision made to proceed with transfer GENERAL: Patient is alert, awake and oriented x3. HEART: Regular S1 and S2 LUNGS: Clear to auscultate bilaterally. CENTRAL NERVOUS SYSTEM: Grossly nonfocal. EXTREMITIES: Left foot is cooler than right. Diminished sensation on the plantar surface.Intact movement. Providers/Reason For Consult 2 Consulting Physician/Specialty*: Dr. Jaramillo Reason for Consult*: Left lower extremity PAD Requesting Physician: Dr. Man Primary Care Provider: NETO Mirza History of Present Illness History of Present Illness Justyn Johnson is a 88 year old male who states he has a history significant for PAD status post right femoropopliteal bypass years ago as well as stent in the left lower extremity came into the emergency room due to 3 days ago he developed claudication in his left calf. He states he is very active and at first did not think anything of it but this morning he said he woke up and his left leg was cold and numb. He is not in any pain at this time. He has full function of his left leg and can move his toes. At home, he takes aspirin 81 mg daily. Lower extremity duplex showed high-grade stenosis in the left popliteal artery stent with markedly diminished flow distally and mild to moderate stenosis in the right SFA with a patent right femoropopliteal bypass. States he has been healthy overall for his age. He states he has never been a smoker and has no history of heart disease. On exam he has a very poor 1+ monophasic posterior tibial venous like in nature no DP was dopplerable and 3-second capillary refill is present. On the right he has 1+ monophasic posterior tibial and 2+ biphasic dorsalis pedis. 2-second capillary refill on the right. He has palpable bilateral femoral pulses. 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 Poor runoff to the right foot. Review of Systems 2 Narrative: Consitutional: denies fever, chills, body aches Eyes: Denies changes in vision Card: Denies chest pain, palpitations, irregular heart rhythm, edema, syncope, shortness of breath, orthopnea, leg pain with exertion Resp: Denies shortness of breath, denies hemoptysis, denies cough GI: denies abdominal pain, denies nausea or vomiting, denies blood in stool Musc: Denies extremity pain, reports numbness of the left foot and toes Skin: Reports cutting his toenail on the right foot, no open wound present per patient Neuro: Denies h/a, s/s of stroke Cory: Denies easy bruiding/bleeding Medications/Allergies Home Medications ?Medication ?Instructions ?Recorded ?Confirmed ?Last Taken ?Type aspirin 81 mg chewable tablet 81 mg PO DAILY 02/28/21 10/08/24 10/08/24 History tamsulosin 0.4 mg capsule 0.4 mg PO DAILY PRN urine fl ow 04/20/24 10/08/24 Unknown History ibuprofen 200 mg tablet 200 mg PO Q6H PRN Pain 10/0810/08/24 Unknown History vit C 250 mg-vit E 90 mg-zinc 40 1 tab PO BID 10/08/24 10/08/24 10/08/24 History mg-copper 1 [id number] capsule (PreserVision AREDS-2) Allergies Allergy/AdvReac Type Severity Reaction Status Date / Time No Known Allergies Allergy Verified 01/18/22 11:34 PFSH Acute 2 PFSH: Medical History Dysfunction of thyroid Enthesopathy of unspecified site Peripheral vascular disease Post-traumatic osteoarthritis Surgical History Hx of peripheral artery bypass Right femoro-popliteal bypass Family History Grandmother Diabetes Denies family history of CAD (coronary artery disease) Stroke Social History Smoking and tobacco/nicotine status: never used tobacco/nicotine Alcohol intake: never Substance/Drug Use: never Vitals/I&O/Wt Last Vital Signs Temp 97.6 F 10/08/24 10:35 Pulse 56 L 10/08/24 10:35 Resp 18 10/08/24 10:35 BP 161/84 10/08/24 10:35 Pulse Ox 97 10/08/24 10:35 O2 Del Method Room Air 10/08/24 10:35 Weight last 48 hrs Weight 170 lb Physical Exam 2 Narrative: General: No apparent distress, healthy appearing, well nourished HENMT: Hard of hearing, hearing aids in place Muskuloskeletal: Full ROM Respiratory: Normal respiratory effort, clear to auscultation bilaterally throughout all lung streeter, no use of accessory muscles Cardio: No JVD, regular rate, regular rhythm, S1 S2 normal, no murmurs, peripheral pulses 2+ radial palpated bilaterally, 2+ palpable femoral bilaterally, 2+ DP and 1+ PT on the right, left no DP and 1+ monophasic poor PT, can move left foot and wiggle toes, but unable to feel sensations on the posterior aspect of foot GI: Normal to inspection, nondistended Extremities: Full ROM, normal, normal capillary refill, no cyanosis or edema Neuro: Alert and oriented x4, no focal motor deficits Psych: Affect normal, mental status grossly normal Skin: Right great toenail has been cut recently with bandaid present without open wound Data 10/08/24 10:50 10/08/24 10:50 A&P Assessment and plan (1) Peripheral vascular disease: (2) Occlusion of left popliteal artery: (3) Occlusion of stent of peripheral artery: (4) Claudication: Plan Patient is not in any distress or pain at this time. He has some doppler signal to the left posterior tibial, but it is poor. Patient's symptoms started 3 days ago indicating acute on chronic severe PAD. Foot is viable. He does have a pulse. At this time, we recommend placing patient on heparin drip. Due to the complexity of the large left popliteal aneurysm, it is our recommendation that patient is transferred to a facility with vascular surgery for further evaluation and treatment. Thank you, Dr. Man, for allowing us to care for this very pleasant 88 year old gentleman. PDMP PDMP Reviewed: Not Reviewed Coding Level of Care Code Acute Code for [facility] Fwd Diagnoses Peripheral vascular disease I73.9 Occlusion of left popliteal artery I70.202 Occlusion of stent of peripheral artery, initial encounter T82.599A Encounter type: initial encounter Claudication I73.9
[2024-10-08] MEDS: heparin 5,000 unit/mL INJ 1 mL IVP (14:37)
[2024-10-08] MEDS: heparin drip 25,000 UNIT/500 ML PREMIX 22 UNIT IV (14:43)
[2024-10-08 14:44] VITALS: BP 194/93; PULSE 47; O2SAT 98
[2024-10-08 14:50] LABS: INR 0.94 (0.8-1.2)
[2024-10-08 14:51] LABS: Partial Thromboplastin Time 33.6 SECONDS (23.9-36.7)
--- NOTE | 2024-10-08 15:17 | PM.HP ---
Providers/Chief Complaint Admitting Physician: Lily Lomax MD Primary Care Provider: NETO Mirza Chief Complaint: no pulse in left leg [facility] History of Present Illness Justyn Johnson is a 88 year old male With a past medical history of peripheral artery disease, right femoropopliteal bypass years ago, history of stent in the left lower extremity came to the emergency room due to 3 days of increasing pain in his left calf. This pain was made worse with exertion. There was concern for claudication pain and CTA with runoff was performed which showed occlusion of a previously placed left popliteal artery stent in the distal aspect of the popliteal aneurysm. There was severe diffuse infrapopliteal calcified atherosclerotic disease. He is being admitted to the hospital in view of acute limb ischemia. Review of Systems General: Reports: 10 or more systems reviewed and unremarkable except in HPI and below Const: Denies: fever(s), chills or body aches Eyes: Denies: change in vision, blurry vision or photophobia ENMT: Reports: hoarseness; Denies: throat pain, enlarged tonsils, odynophagia or nasal congestion Card: Denies: chest pain, palpitations, irregular heart rhythm, edema, swelling of feet/ankles, lightheadedness, pre-syncope, dyspnea on exertion or orthopnea Resp: Denies: dyspnea, productive cough, non-productive cough, wheezing, stridor, pain on inspiration, change in phlegm color, hemoptysis or chest congestion GI: Denies: abdominal pain, nausea, vomiting, hematemesis, coffee ground emesis, dysphagia, heartburn, diarrhea, constipation, GI cramping, change in stool character, hematochezia or melena : Denies: flank pain, dysuria, urinary frequency, urinary urgency, urinary hesitancy or hematuria Musc: Denies: neck pain, back pain, extremity pain, joint swelling, joint warmth or deformity Neuro: Denies: headache(s), numbness in extremities, weakness in extremities, sensory changes, difficulty walking, frequent falls, dizziness, vertigo, behavioral changes, Slurred speech present or seizure-like activity Psych: Denies: anxiety, depression, suicidal ideation or homicidal ideation Endo: Denies: polyuria, polydipsia, tired all the time, cold intolerance or hot flashes Cory/Lymph: Denies: easy bruising or easy bleeding Medications/Allergies Home Medications ?Medication ?Instructions ?Recorded ?Confirmed ?Last Taken ?Type aspirin 81 mg chewable tablet 81 mg PO DAILY 02/28/21 10/08/24 10/08/24 History tamsulosin 0.4 mg capsule 0.4 mg PO DAILY PRN urine flow 04/20/24 10/08/24 Unknown History ibuprofen 200 mg tablet 200 mg PO Q6H PRN Pain 10/08/24 10/08/24 Unknown History vit C 250 mg-vit E 90 mg-zinc 40 1 tab PO BID 10/08/24 10/08/24 10/08/24 History mg-copper 1 [id number] capsule (PreserVision AREDS-2) Allergies Allergy/AdvReac Type Severity Reaction Status Date / Time No Known Allergies Allergy Verified 01/18/22 11:34 PFSH Acute PFSH: Medical History Dysfunction of thyroid Enthesopathy of unspecified site Peripheral vascular disease Post-traumatic osteoarthritis Surgical History Hx of peripheral artery bypass Right femoro-popliteal bypass Family History Grandmother Diabetes Denies family history of CAD (coronary artery disease) Stroke Social History Smoking and tobacco/nicotine status: never used tobacco/nicotine Alcohol intake: never Substance/Drug Use: never Vitals/I&O/Wt Last Vital Signs Temp 97.6 F 10/08/24 10:35 Pulse 47 L 10/08/24 14:44 Resp 18 10/08/24 10:35 BP 194/93 10/08/24 14:44 Pulse Ox 98 10/08/24 14:44 O2 Del Method Room Air 10/08/24 14:44 Weight last 48 hrs Weight 77.111 kg Physical Exam Narrative: General: No acute distress, AO x3 HEENT: PERRLA, pupils bilaterally equal and reactive, pallors not present Chest: Normal vesicular breath sounds, no added sounds, equal good air entry bilaterally CVS: S1-S2 regular, no murmurs, no tachycardia, no gallops, no rubs Abdomen: Soft, nontender, no organomegaly, bowel sounds present Neuro: No focal deficits, no facial deformity, AO x3, power 5/5 in all limbs Data 10/08/24 10:50 10/08/24 10:50 Other data: Radiology Impressions Duplex Scan Lower Extremity Artery 10/08/24 10:38 IMPRESSION: High-grade stenosis in left popliteal artery stent with markedly diminished flow distally. Cwgq-sb-zanntwel stenosis in the mid right SFA. Patent right femoropopliteal bypass. Aorta w/Runoff CTA 10/08/24 12:27 IMPRESSION: 1. 2.5 cm infrarenal abdominal aortic aneurysm. 2. Patent right distal SFA to infrapopliteal bypass. 3. 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 Small amount of contrast enters the proximal aspect of the aneurysm near the bypass. 4. 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 Left popliteal artery stent begins in the distal aspect of the aneurysm and appears occluded or nearly completely occluded. 5. Severe diffuse infrapopliteal calcified atherosclerotic disease which limits evaluation. Probable single-vessel limited runoff to the left foot via the posterior tibial artery. Poor runoff visualization to the right foot. 6. Moderate nonspecific prostate enlargement. Laboratory Results WBC 6.94 10^3/uL (3.29-11.43) 10/08/24 10:50 RBC 4.62 10^6/uL (3.85-5.65) 10/08/24 10:50 Hgb 15.00 g/dL (11.27-16.99) 10/08/24 10:50 Hct 44.0 % (37-53) 10/08/24 10:50 MCV 95.2 fl (82-101) 10/08/24 10:50 MCH 32.5 pg (27-33) 10/08/24 10:50 MCHC 34.1 g/dL (30-55) 10/08/24 10:50 RDW 12.8 % (12.1-15.1) 10/08/24 10:50 Plt Count 162 10^3/cmm (157-399) 10/08/24 10:50 MPV 9.8 fL (7.4-10.4) 10/08/24 10:50 Neut % (Auto) 50.7 % 10/08/24 10:50 Lymph % (Auto) 31.8 % 10/08/24 10:50 [place] % (Auto) 13.0 % 10/08/24 10:50 Eos % (Auto) 3.0 % 10/08/24 10:50 Baso % (Auto) 1.2 % 10/08/24 10:50 Neut # (Auto) 3.52 10^3/uL (1.8-7.7) 10/08/24 10:50 Lymph # (Auto) 2.2 10^3/uL (0.8-4.8) 10/08/24 10:50 [place] # (Auto) 0.9 10^3/uL (0.2-0.9) 10/08/24 10:50 Eos # (Auto) 0.2 10^3/uL (0.0-0.8) 10/08/24 10:50 Baso # (Auto) 0.1 10^3/uL (0.0-0.1) 10/08/24 10:50 Nucleated RBC % (auto) 0 % 10/08/24 10:50 Nucleated RBCs # 0.0 /100WBC 10/08/24 10:50 PT 13.30 SECONDS (12.1-14.9) 10/08/24 10:50 INR 0.94 (0.8-1.2) 10/08/24 10:50 APTT 33.6 SECONDS (23.9-36.7) 10/08/24 10:50 Sodium 138 mmol/L (136-145) 10/08/24 10:50 Potassium 4.5 mmol/L (3.5-5.1) 10/08/24 10:50 Chloride 105 mmol/L (98-107) 10/08/24 10:50 Carbon Dioxide 22 mmol/L (22-29) 10/08/24 10:50 Anion Gap 15.5 (5-19) 10/08/24 10:50 BUN 15 mg/dL (8-23) 10/08/24 10:50 Creatinine 0.9 mg/dL (0.7-1.2) 10/08/24 10:50 GFR Calculation Not Reportable 10/08/24 10:50 Glucose 94 mg/dL (65-115) 10/08/24 10:50 Calculated Osmolality 287 mOsm/kg (285-295) 10/08/24 10:50 Lactic Acid 1.0 mmol/L (0.5-2.2) 10/08/24 10:50 Calcium 9.1 mg/dL (8.5-10.5) 10/08/24 10:50 Total Bilirubin 0.7 mg/dL (0.15-1.2) 10/08/24 10:50 AST 15 U/L (0-40) 10/08/24 10:50 ALT 8 U/L (0-41) 10/08/24 10:50 Alkaline Phosphatase 79 U/L (40-130) 10/08/24 10:50 Total Protein 7.7 g/dL (6.6-8.7) 10/08/24 10:50 Albumin 3.8 g/dL (3.5-5.2) 10/08/24 10:50 Globulin 3.9 g/dL (1.3-4.6) 10/08/24 10:50 A&P Assessment and plan (1) Occlusion of stent of peripheral artery: Acute limb ischemia late related to likely thrombosed stent of the left popliteal artery as noted above on CTA. Patient has been started on heparin drip in the emergency room which we will continue for now with PTT monitoring. Aspirin 325 mg p.o. has been administered in the emergency room. Cardiology consulted, plan for intervention tomorrow. Keep n.p.o. postmidnight. HbA1c and lipid panel for restratification (2) Peripheral vascular disease: (3) Occlusion of left popliteal artery: (4) Sinus bradycardia: Sinus bradycardia noted on EKG. Currently asymptomatic in this regard Review of prior charts shows heart rate as low as 44-59 in 2020 on previous admissions. Last echocardiogram from 2020 shows normal LVEF EF of 65 to 70% without regional wall motion abnormalities. As needed morphine for pain management (5) Hypertension: Currently systolic blood pressure ranging 180-190 systolic. Start hydralazine 10 mg IV every 6 hours. Will start amlodipine as a scheduled medication daily. Plan DVT prophylaxis: Currently on heparin drip Full code PDMP PDMP Reviewed: Not Reviewed Attestations Medical Necessity Statement*: Greater than 2 midnight stay is anticipated Coding Level of Care Code Acute Code for [facility] Fwd Diagnoses Occlusion of stent of peripheral artery, initial encounter T82.599A Encounter type: initial encounter Peripheral vascular disease I73.9 Occlusion of left popliteal artery I70.202 Sinus bradycardia R00.1 Hypertension I10
[2024-10-08 15:28] VITALS: BP 180/82; PULSE 48; O2SAT 95
[2024-10-08 15:53] VITALS: BMI 22.9
[2024-10-08 16:00] VITALS: BP 176/99; PULSE 41; RESP 12; TEMP 36.3; O2SAT 98
[2024-10-08 16:33] LABS: Thyroid Stimulating Hormone 4.65 uIU/mL (0.27-4.20)
[2024-10-08 19:20] VITALS: BP 164/95; PULSE 47; RESP 21; TEMP 36.4; O2SAT 95
[2024-10-08 20:59] LABS: Partial Thromboplastin Time 136.8 SECONDS (23.9-36.7)
[2024-10-08 23:34] VITALS: BP 164/95; PULSE 43; RESP 19; O2SAT 96
== END 2024-10-08 23:37 | disposition short-term general hospital (02) | DRG 316 ==
LOC: ER 13:53 → CSU 14:50
PROVIDERS: Family Medicine; Admitting Provider Student in an Organized Health Care Education/Training Program; Emergency Provider Emergency Medicine; PCP Nurse Practitioner; Visit Provider Student in an Organized Health Care Education/Training Program
DX: T82.898A Other specified complication of vascular prosthetic devices, implants and grafts, initial encounter (principal); Z79.899 Other long term (current) drug therapy; Z79.82 Long term (current) use of aspirin; I77.1 Stricture of artery; R00.1 Bradycardia, unspecified; I10 Essential (primary) hypertension; I70.212 Atherosclerosis of native arteries of extremities with intermittent claudication, left leg
CPT/HCPCS: 36415; 75635; 80053; 83605; 84443; 85025; 85610; 85730; 93925; 93970; 96365; 99285; J1644

== ENCOUNTER → 2024-11-25 08:15 | Outpatient (BNVA) | payer OTHER, MEDICARE, SELFPAY | PROVIDERS: PCP Nurse Practitioner; Visit Provider Dermatology | DX: L72.0 Epidermal cyst (principal); L81.4 Other melanin hyperpigmentation; Z08 Encounter for follow-up examination after completed treatment for malignant neoplasm; Z86.006 Personal history of melanoma in-situ; Z85.828 Personal history of other malignant neoplasm of skin; D48.5 Neoplasm of uncertain behavior of skin; R20.8 Other disturbances of skin sensation; R23.8 Other skin changes; L53.8 Other specified erythematous conditions; L57.0 Actinic keratosis | CPT/HCPCS: 11426; 12042; 17000; 99213 ==

== ENCOUNTER → 2025-04-16 08:30 | Outpatient (BNVA) | payer OTHER, SELFPAY | PROVIDERS: PCP Nurse Practitioner; Referring Provider Nurse Practitioner; Visit Provider Nurse Practitioner Family | DX: I48.91 Unspecified atrial fibrillation (principal); Z79.02 Long term (current) use of antithrombotics/antiplatelets; Z79.82 Long term (current) use of aspirin; I73.9 Peripheral vascular disease, unspecified; I10 Essential (primary) hypertension; R00.1 Bradycardia, unspecified; R94.31 Abnormal electrocardiogram [ECG] [EKG] | CPT/HCPCS: 93005; 99214 ==